=== PATIENT | male | born 1975 | race Caucasian/White ===

== ENCOUNTER 2017-08-21 15:53 | Emergency (ER) | payer OTHER ==
[~2017-08-21] VITALS: Ht 172.7 cm; Wt 91.4 kg
[2017-08-21] MEDS ORDERED: HYDROcodone/APAP 5/325 TABLET PO PRN (16:30)
[2017-08-21 17:11] LABS: BASOPHILS # (AUTO) 0.04 x10^3/uL (0-0.1); BASOPHILS % (AUTO) 0 % (0-1); EOSINOPHILS # (AUTO) 0.63 x10^3/uL (0-0.4); EOSINOPHILS % (AUTO) 6 % (1-7); LYMPHOCYTES # (AUTO) 2.17 x10^3/uL (1-3.4); LYMPHOCYTES % (AUTO) 19 % (22-44); MD NO; MEAN CORPUSCULAR HEMOGLOBIN 29.8 pg (27.5-34.5); MEAN CORPUSCULAR HGB CONC 34.4 g/dL (33.2-36.2); MEAN CORPUSCULAR VOLUME 86.5 fL (81-97); MEAN PLATELET VOLUME 7.5 fL (7.4-10.4); MONOCYTES # (AUTO) 0.63 x10^3/uL (0.2-0.8); MONOCYTES % (AUTO) 6 % (2-9); NEUTROPHILS # (AUTO) 7.78 x10^3/uL (1.8-6.8); NEUTROPHILS % (AUTO) 69 % (42-75); PLATELET COUNT 366 x10^3/uL (130-400); RED BLOOD COUNT 5.28 x10^6/uL (4.38-5.82); RED CELL DISTRIBUTION WIDTH 12.7 % (9.4-14.8)
[2017-08-21 17:20] LABS: ALBUMIN 3.7 g/dL (3.4-5.0); ANION GAP 6 mmol/L (5-15); CALCIUM 8.5 mg/dL (8.5-10.1); CHLORIDE 105 mmol/L (98-107)
[2017-08-21] MEDS ORDERED: HYDROcodone/APAP 5/325 TABLET ONE (17:23)
[2017-08-21 17:27] VITALS: BP 115/82
[2017-08-21] MEDS ORDERED: HYDROcodone/APAP 5/325 TABLET PO ONE (17:30)
[2017-08-21 17:45] LABS: MICROSCOPIC NOT IND
[2017-08-21 17:50] LABS: CULTURE INDICATED? NO
== END 2017-08-21 18:32 | disposition home or self-care (01) ==
LOC: ED 18:11
DX: R10.2 Pelvic and perineal pain (principal); G89.29 Other chronic pain
CPT/HCPCS: 36415; 76870; 80048; 81003; 82040; 85025; 99285

== ENCOUNTER → 2017-09-10 | Outpatient (CLI) | payer OTHER ==
[~2017-09-10] MED LIST: None per pt
== END ==
LOC: STAR 13:31
PROVIDERS: ATTEND Surgery
DX: Z02.9 Encounter for administrative examinations, unspecified (principal)

== ENCOUNTER 2017-09-20 06:35 | Day surgery (SDC) | payer OTHER ==
[~2017-09-20] VITALS: Ht 172.7 cm; Wt 93.4 kg
[2017-09-20] MEDS ORDERED: BUPIVACAINE/PF 0.5% ONE (06:54)
[2017-09-20] MEDS ORDERED: EPINEPHRINE 1 MG/ML, 1ML ONE (06:54)
[2017-09-20] MEDS ORDERED: LACTATED RINGERS 1,000 ML IV SCH (07:16)
[2017-09-20 07:18] VITALS: BP 136/91
[2017-09-20] MEDS ORDERED: GABAPENTIN 300 MG CAPSULE PO ONE (07:30)
[2017-09-20] MEDS ORDERED: ACETAMINOPHEN 500 MG TABLET PO ONE (07:30)
[2017-09-20] MEDS ORDERED: MIDAZOLAM 1 MG/ML, 2ML ONE (07:49)
[2017-09-20] MEDS ORDERED: FENTANYL PF 250 MCG/5ML ONE (07:49)
[2017-09-20] MEDS ORDERED: ROCURONIUM 10 MG/ML,10ML ONE ×2 (07:50→09:54)
[2017-09-20] MEDS ORDERED: PROPOFOL 10 MG/ML, 20ML ONE (07:50)
[2017-09-20] MEDS ORDERED: NEOSTIGMINE 1 MG/ML, 10ML ONE (07:51)
[2017-09-20] MEDS ORDERED: GLYCOPYRROLATE 0.4 MG/2 ML, 2ML ONE ×2 (07:51→10:19)
[2017-09-20] MEDS ORDERED: CEFAZOLIN 1,000 MG ONE ×2 (07:53)
[2017-09-20] MEDS ORDERED: WATER-INJECTION,STERILE 10 ML IV ONE (07:53)
[2017-09-20] MEDS ORDERED: MEPERIDINE/PF 25MG/0.5ML IVPush PRN (09:00)
[2017-09-20] MEDS ORDERED: hydrALAzine 20 MG/ML, 1ML IV PRN (09:00)
[2017-09-20] MEDS ORDERED: HYDROmorphone 1 MG/ML, 1ML IV PRN (09:00)
[2017-09-20] MEDS ORDERED: OXYcodone 5 MG/5 ML ORAL.SOL UDC PO PRN (09:00)
[2017-09-20] MEDS ORDERED: FENTANYL PF 100 MCG/2ML IV PRN (09:00)
[2017-09-20] MEDS ORDERED: PROMETHAZINE 12.5 MG SUPP PR PRN (09:00)
[2017-09-20] MEDS ORDERED: LABETALOL 5MG/ML, 20ML IV PRN (09:00)
[2017-09-20] MEDS ORDERED: morphine SULFATE 10 MG/ML, 1ML IV PRN (09:00)
[2017-09-20] MEDS ORDERED: PROMETHAZINE 25 MG/ML, 1ML IV PRN (09:00)
[2017-09-20] MEDS ORDERED: ONDANSETRON 2MG/ML, 2ML IVPush PRN (09:00)
[2017-09-20] MEDS ORDERED: METOCLOPRAMIDE 5 MG/ML, 2ML IV PRN (09:00)
[2017-09-20] MEDS ORDERED: BUPIVACAINE/PF-EPI 0.5% 1:200K INFIL ONE (09:16)
[2017-09-20] MEDS ORDERED: FENTANYL PF 100 MCG/2ML ONE ×2 (09:53→10:13)
[2017-09-20] MEDS ORDERED: OXYcodone 5 MG/5 ML ORAL.SOL UDC ONE (10:46)
[2017-09-20] MEDS ORDERED: HYDROcodone/APAP 5/325 TABLET ONE (15:37)
[2017-09-20] MEDS ORDERED: HYDROcodone/APAP 5/325 TABLET PO PRN (20:00)
== END 2017-09-20 20:50 | disposition home or self-care (01) ==
LOC: OUT 06:35 → 4NOR 18:58 → OUT 20:50
PROVIDERS: ATTEND Surgery
DX: K40.90 Unilateral inguinal hernia, without obstruction or gangrene, not specified as recurrent (principal)
CPT/HCPCS: 49650; C1727; C1781; J0171; J0690; J2250; J2405; J2704; J2710; J3010; J3490; J7120